=== PATIENT | male | born 1990 | race Asian ===

== ENCOUNTER 2016-10-25 00:21 | Emergency (ER) | payer OTHER ==
[~2016-10-25] VITALS: Ht 162.6 cm; Wt 61.2 kg
[2016-10-25] MEDS ORDERED: NKM (00:52)
[2016-10-25 01:00] VITALS: BP 116/68
--- NOTE | 2016-10-25 01:20 | Emergency Room Report ---
History of Present Illness General Chief Complaint: Eye Problems Source: Patient Present Illness HPI This is a 26-year-old male with no past medical history. He presents with chief complaint of right eye pain. He was playing basketball today and was elbow in the eye. Initially was fine until he got home. He was blown his nose and felt right I increasing pain and swelling. No fever or chills. No nausea no vomiting. Fell out pressure in that area. No other complaint. Pain is 7/ 10. Allergies: Coded Allergies: No Known Allergies (Unverified , 10/25/16) Patient History Past Medical History: none Past Surgical History: none Pertinent Family History: none Social History: Denies: smoking Immunizations: other Reviewed Nursing Documentation: PMH: Agreed, PSxH: Agreed Nursing Documentation-PMH Past Medical History: No Stated History Review of Systems Eye: Reports: eye pain, Denies: blurred vision ENT: Denies: ear pain, nose congestion, throat swelling Respiratory: Denies: cough, shortness of breath Cardiovascular: Denies: chest pain, palpitations Gastrointestinal: Denies: abdominal pain, diarrhea, nausea, vomiting Musculoskeletal: Denies: back pain, joint pain Skin: Denies: rash Neurological: Denies: headache, numbness Endocrine: Denies: increased thirst, increased urine Hematologic/Lymphatic: Denies: easy bruising All Other Systems: negative except mentioned in HPI Physical Exam Vital Signs Date Time Temp Pulse Resp B/P Pulse Ox O2 Delivery O2 Flow Rate FiO2 10/25/16 00:47 98.1 61 18 114/67 98 Room Air vitals normal Sp02 EP Interpretation: reviewed, normal General Appearance: well appearing, no apparent distress, alert Head: normocephalic, atraumatic Eyes: left eye other - Left eye with periorbital ecchymosis., bilateral eye EOMI, bilateral eye PERRL ENT: hearing grossly normal, normal pharynx Neck: full range of motion, supple, no meningismus Respiratory: chest non-tender, lungs clear, normal breath sounds Cardiovascular #1: regular rate, rhythm, no murmur Gastrointestinal: normal bowel sounds, non tender, no mass, no organomegaly, no bruit, non-distended Musculoskeletal: back normal, gait/station normal, normal range of motion Psychiatric: mood/affect normal Skin: warm/dry Medical Decision Making Diagnostic Impression: Primary Impression: Orbital wall fracture Qualified Codes: S02.80XA - Fracture of other specified skull and facial bones , unspecified side, initial encounter for closed fracture ER Course Patient presents with orbital wall fracture. Clinically no evidence of entrapment. We'll discharge home. CT/MRI/US Diagnostic Results CT/MRI/US Diagnostic Results : Imaging Test Ordered: CT facial bone Impression read by radiologist. fracture of inferior orbital wall. Last Vital Signs Date Time Temp Pulse Resp B/P Pulse Ox O2 Delivery O2 Flow Rate FiO2 10/25/16 00:47 98.1 61 18 114/67 98 Room Air Status: improved Disposition: HOME, SELF-CARE Condition: Stable Scripts Hydrocodone/Acetaminophen 5-325* (HYDROCODONE/ACETAMINOPHEN 5-325*) 1 Each Tablet 1 TAB ORAL Q6H Y for For Pain, #20 TAB 0 Refills Prov: LESTER MARLOW M.D. 10/25/16 Referrals: NON PHYSICIAN (PCP) Additional Instructions: Followup with your Dr. in 7 days. You may need a referral to see a plastic surgeon or maxillo facial surgeon. Do not blow your nose. Return if symptom worsen. LESTER MARLOW M.D. Oct 25, 2016 01:20
[2016-10-25] MEDS ORDERED: Norco 5mg/325mg tab ORAL ONE (01:30)
[2016-10-25] MEDS ORDERED: HYDROCODON-ACE1 EA15 ORAL (02:27)
[2016-10-25 03:00] VITALS: BP 120/70
--- NOTE | 2016-10-25 10:39 | Diagnostic Imaging Report ---
Indication: Trauma Technique: Continuous helical transaxial imaging of the maxillofacial structures obtained without intravenous contrast administration. Coronal 2-D reformats were also obtained. Study obtained in a Siemens sensation [address] Total Dose length Product (DLP): [address] Dose Index Volume (CTDIvol): 28 mGy Comparison: None Findings: There is a fracture of the floor of the right orbit. There is herniation of some of the intraorbital fat. There is no visualized entrapment of the inferior rectus muscle. Moderate amount of intraorbital air noted. There is no proptosis identified. No other fractures are identified. There is submucosal thickening within portions of the paranasal sinuses consistent with sinusitis. The pterygoid plates, the mandible and other osseous structures visualized on this exam appear intact. Impression: Acute isolated fracture of the right orbital floor. Associated orbital emphysema. No definite entrapment of inferior rectus muscle identified. However these correlate clinically. Sinusitis [facility] has communicated the preliminary results to the Emergency Department. Their findings are largely concordant with this report. The CT scanner at [facility] is accredited by the [employer] and the scans are performed using protocols designed to limit radiation exposure to as low as reasonably achievable to attain images of sufficient resolution adequate for diagnostic evaluation.
== END 2016-10-25 03:00 | disposition home or self-care (01) ==
LOC: EMR 00:59
DX: S02.80XA Fracture of other specified skull and facial bones, unspecified side, initial encounter for closed fracture (principal); W50.0XXA Accidental hit or strike by another person, initial encounter; Y93.67 Activity, basketball; Y92.9 Unspecified place or not applicable
CPT/HCPCS: 70486; 99284